=== PATIENT | female | born 1990 | race Caucasian/White ===

== ENCOUNTER 2019-12-26 04:46 | Emergency (ER) | payer BC ==
[~2019-12-26] VITALS: Ht 167.6 cm; Wt 101.8 kg
[2019-12-26] MEDS ORDERED: KETOROLAC 30 MG/1 ML IVPush ONE (05:30)
[2019-12-26] MEDS ORDERED: METOCLOPRAMIDE 5 MG/ML, 2ML IVPush ONE (05:30)
[2019-12-26] MEDS ORDERED: SODIUM CHLORIDE 0.9% 1,000ML IVBOLUS ONE (05:30)
[2019-12-26] MEDS ORDERED: DIPHENHYDRAMINE 50 MG/ML, 1ML IVPush ONE (05:30)
[2019-12-26] MEDS ORDERED: KETOROLAC 30 MG/1 ML ONE (05:31)
[2019-12-26] MEDS ORDERED: METOCLOPRAMIDE 5 MG/ML, 2ML ONE (05:31)
[2019-12-26] MEDS ORDERED: DIPHENHYDRAMINE 50 MG/ML, 1ML ONE (05:31)
--- NOTE | 2019-12-26 05:40 | NUR ---
Medicated as per orders, pt tolerate well, call ceja in reach and aware of use. Significant other at bedside, warm blankets given.
[2019-12-26 05:46] VITALS: BP 116/71
--- NOTE | 2019-12-26 06:51 | NUR ---
RECEIVED BEDSIDE REPORT FROM JANELLE SAHNI.
--- NOTE | 2019-12-26 07:09 | NUR ---
Patient/Caregiver given discharge instructions and they have confirmed that they understand the instructions. Patient ambulatory with steady gait. PT LEFT WITH ALL PERSONAL BELONGINGS. PT STATES "I FEEL MUCH BETTER." LORRIN. PT WITH FRIEND.
== END 2019-12-26 07:12 | disposition home or self-care (01) ==
LOC: ED 05:16
DX: G43.909 Migraine, unspecified, not intractable, without status migrainosus (principal); R11.2 Nausea with vomiting, unspecified
CPT/HCPCS: 96361; 96374; 96375; 99284; J1200; J1885; J2765; J7030